=== PATIENT | male | born 1950 | race Two or more races ===

== ENCOUNTER 2018-06-07 13:46 | Inpatient (IN) | payer MEDICARE ==
[~2018-06-07] VITALS: Ht 167.6 cm; Wt 67.1 kg
[2018-06-07 14:10] VITALS: BP_SYST 123; BP_SYST 135; BP_DIAS 65; BP_DIAS 78
[2018-06-07 14:43] VITALS: BP 123/78
--- NOTE | 2018-06-07 14:52 | Diagnostic Imaging Report ---
PROCEDURE: A single AP view of the chest. COMPARISON: None. INDICATIONS: PREOPERATIVE CHEST XRAY FOR PROSTATE SURGERY FINDINGS: Lines/tubes: Left sided tunneled hemodialysis catheter with tip near the cavoatrial junction. Overlying clothing or dressing artifact. Lungs: Moderate lung volumes. There is no evidence of pneumonia or pulmonary edema. A 7 mm nodular opacity projects over the right lower lung zone. Pleura: There is no pleural effusion or pneumothorax. Heart and mediastinum: The cardiomediastinal silhouette. Bones: No acute bony abnormality. IMPRESSION: No evidence of pneumonia or pulmonary edema. A 7 mm nodular opacity projects over the right lower lung zone. There is artifact from overlying clothing or dressing in this location as well. Repeat chest radiograph is recommended with this removed to determine if the opacity is overlying the patient. If the opacity persists, a chest CT may be considered. Dictated by: KAYDEN AHUMADA M.D. on 06/07/2018 at 14:57 Electronically approved by: KAYDEN AHUMADA M.D. on 06/07/2018 at 14:57
[2018-06-07] MEDS ORDERED: DEXTROSE 5%/0.9% SOD CHL 1,000 ML IV SCH (15:00)
[2018-06-07 15:01] LABS: BASOPHILS # (AUTO) 0.1 (0.0-0.1); BASOPHILS % 0.9 % (0.0-1.0); EOSINOPHILS # (AUTO) 0.4 (0.0-0.4); EOSINOPHILS % 4.2 % (0.0-6.0); HEMATOCRIT 29.8 % (38.2-49.6); HEMOGLOBIN 9.7 g/dL (14.0-18.0); LYMPHOCYTES % 23.1 % (18.0-39.1); MEAN CORPUSCULAR HEMOGLOBIN 27.3 pg (28-32); MEAN CORPUSCULAR HGB CONC 32.6 g/dL (31-35); MEAN CORPUSCULAR VOLUME 83.9 fL (81-99); MONOCYTES # (AUTO) 0.6 (0.2-0.8); MONOCYTES % 6.8 % (4.4-11.3); NEUTROPHILS # (AUTO) 5.6 (2.1-6.9); NEUTROPHILS % 64.7 % (38.7-80.0); PLATELET COUNT 317 x10e3/uL (140-360); RED BLOOD COUNT 3.55 x10e6/uL (4.3-5.7); RED CELL DISTRIBUTION WIDTH 14.1 % (11.7-14.4)
[2018-06-07 15:34] LABS: INR 1.09; PROTHROMBIN TIME 13.3 seconds (11.9-14.5)
[2018-06-07 15:35] LABS: PARTIAL THROMBOPLASTIN TIME 33.7 seconds (23.8-35.5)
[2018-06-07 15:46] LABS: ALBUMIN 3.6 g/dL (3.5-5.0); ALBUMIN/GLOBULIN RATIO 0.8 (0.8-2.0); ANION GAP 20.9 mmol/L (8-16); CALCIUM 9.6 mg/dL (8.4-10.2); CHOL/HDL RATIO 4.2 (3.9-4.7); CREATININE, SERUM 5.18 mg/dL (0.72-1.25); POTASSIUM 3.9 mmol/L (3.5-5.1)
[2018-06-07 16:06] LABS: THYROID STIMULATING HORMONE 1.229 uIU/mL (0.350-4.940)
[2018-06-07] MEDS ORDERED: SODIUM CHLORIDE 0.9% 1000ML 1,000 ML ONE (17:39)
[2018-06-07] MEDS ORDERED: CEFAZOLIN SOD 1 GM VIAL IV SCH (18:00)
--- NOTE | 2018-06-07 18:49 | Consultation ---
DATE OF CONSULTATION: June 07, 2018 HISTORY OF PRESENT ILLNESS: Mr. Jones Guillaume is known to me. He is a 67-year-old gentleman with underlying history of metastatic prostate cancer brought in by Dr. Manuel Augustine for transurethral resection of prostate. He is dialysis dependent. He is currently awake and alert. Denies fever, chills, chest pain, shortness of breath, nausea or vomiting. ALLERGIES: NO APPARENT DRUG ALLERGIES. CURRENT MEDICATIONS: Patient is on Flomax 0.4 mg at bedtime, nifedipine 60 mg daily. Cefazolin 1 gram IV q.24 and IV fluid at 30 mL an hour. SOCIAL HISTORY: Patient is . Does not smoke or drink. FAMILY HISTORY: Significant for hypertension. PHYSICAL EXAMINATION: GENERAL: Awake, alert and oriented times 3, lying supine in bed. VITAL SIGNS: With a blood pressure of 123/78, pulse rate 89, afebrile, respiratory rate 18. HEAD AND NECK: Corneae clear. Mucosa dry. Neck veins flat. LUNGS: Relatively clear. No rales. CARDIOVASCULAR: S1 and S2 audible. ABDOMEN: Otherwise soft. LOWER EXTREMITY EXAMINATION: No edema. LABORATORY DATA: Show a white count 8.6. Hemoglobin 9.7. Potassium 3.9. Bicarbonate 19. Creatinine 5.18. IMPRESSION 1. Metabolic acidosis. 2. End-stage renal disease, dialysis dependent. 3. Metastatic prostate cancer. Calcium level is normal at 9.6. For TURP tomorrow. Please see Dr. Augustine's note. Job#: [id number]
[2018-06-07] MEDS ORDERED: SODIUM CHLORIDE 0.9% 1000ML 2,000 ML IV PRN (19:45)
[2018-06-07] MEDS ORDERED: SODIUM CHLORIDE 0.9% 250ML 500 ML IV PRN (19:45)
[2018-06-07] MEDS ORDERED: HEPARIN SOD (PORCINE) 1000 UNIT/ML SDV IV PRN (19:45)
--- NOTE | 2018-06-07 19:48 | Consultation ---
DATE OF CONSULTATION: June 07, 2018 UROLOGY CONSULTATION, INITIAL VISIT ATTENDING: Dr. Urbano Salazar. HISTORY OF PRESENT ILLNESS: This is a 67-year-old patient who is known to me from previous hospitalization at [facility]. At that hospital, he presented with a PSA of over 130 and was found to have every prostate chip biopsy high grade, some of them 9 Siddharth score. Patient also had acute urinary retention and could not void. Attempt to remove the Sethi failed. He has also [id number] renal failure, and presently he is on dialysis. The patient came to be admitted for dialysis in preparation for possible transurethral resection of the prostate tomorrow. Procedure was discussed with the patient. Potential benefits and complications discussed, explained and accepted. PAST MEDICAL HISTORY: Significant for the cancer of the prostate that was mentioned earlier. ALLERGIES TO MEDICATIONS: NOT KNOWN. FAMILY HISTORY: Noncontributory. MEDICATIONS: See MAR. REVIEW OF SYSTEMS: Twelve systems reviewed. Except what is related to inability to void and minimal back pain, everything else was negative. PHYSICAL EXAMINATION VITALS: Blood pressure 130/84, pulse 88, respirations 18, temperature 97.3, GENERAL: Patient is alert and oriented times 3. Does not seem to be in acute distress. HEAD: Symmetric. EYES: Normal movement. NECK: No JVD. No masses. CHEST: Clear. HEART: Regular. ABDOMEN: Soft. EXTERNAL GENITALIA: Unremarkable LOWER EXTREMITIES: No edema. Moves all. LABORATORY DATA: Creatinine 5.18, BUN 65, hemoglobin 9.7, white count 8.64, sodium 140, potassium 3.9, chloride 104, bicarb 19. No urinalysis in the chart at the present time. IMPRESSION 1. Acute urinary retention. 2. Adenocarcinoma of the prostate. 3. Hydronephrosis. 4. Renal failure, acute on chronic. 5. Nocturia. PLAN: Patient is planned to have dialysis today. If medically cleared and ready, he will have the prostate surgery tomorrow. The patient again was advised that this surgery is not treatment of the prostate cancer, just to relieve the obstruction. He understands it. Job#: [id number]
[2018-06-07 20:09] VITALS: BP 112/80
[2018-06-07 21:00] VITALS: BP 112/80
[2018-06-07] MEDS ORDERED: CEFAZOLIN SOD 1 GM/D5W 50ML 50 ML IV SCH (21:00)
[2018-06-07] MEDS: TAMSULOSIN HCL 0.4 MG CAP PO SCH (21:00)
[2018-06-07] MEDS: CEFAZOLIN SOD 1 GM VIAL IV SCH (22:00)
[2018-06-08] VITALS (7 sets, daily range): BP systolic 102–150; BP diastolic 55–92
[2018-06-08 06:24] LABS: ALBUMIN 3.1 g/dL (3.5-5.0); ALBUMIN/GLOBULIN RATIO 0.8 (0.8-2.0); ANION GAP 13.4 mmol/L (8-16); CALCIUM 9.3 mg/dL (8.4-10.2); CREATININE, SERUM 3.11 mg/dL (0.72-1.25); POTASSIUM 4.4 mmol/L (3.5-5.1)
[2018-06-08] MEDS: NIFEDIPINE CR 30 MG TAB PO SCH (08:55)
[2018-06-08 10:12] LABS: BASOPHILS # (AUTO) 0.1 (0.0-0.1); BASOPHILS % 1.2 % (0.0-1.0); EOSINOPHILS # (AUTO) 0.3 (0.0-0.4); EOSINOPHILS % 4.4 % (0.0-6.0); HEMATOCRIT 27.6 % (38.2-49.6); HEMOGLOBIN 8.8 g/dL (14.0-18.0); LYMPHOCYTES # (AUTO) 1.6 (1.0-3.2); LYMPHOCYTES % 27.1 % (18.0-39.1); MEAN CORPUSCULAR HEMOGLOBIN 27.4 pg (28-32); MEAN CORPUSCULAR HGB CONC 31.9 g/dL (31-35); MONOCYTES # (AUTO) 0.6 (0.2-0.8); MONOCYTES % 9.7 % (4.4-11.3); NEUTROPHILS # (AUTO) 3.4 (2.1-6.9); NEUTROPHILS % 57.1 % (38.7-80.0); PLATELET COUNT 268 x10e3/uL (140-360); RED BLOOD COUNT 3.21 x10e6/uL (4.3-5.7); RED CELL DISTRIBUTION WIDTH 13.9 % (11.7-14.4)
--- NOTE | 2018-06-08 10:30 | History and Physical ---
He is a 67-year-old male patient of mine who presented with renal failure, profound weakness and weight loss. CHIEF COMPLAINT: The patient is being admitted for prostate cancer. HISTORY OF PRESENT ILLNESS: Mr. Jones Guillaume had metastatic prostate cancer and weight loss. Had renal failure requiring hemodialysis. Now, the patient is currently on hemodialysis treatment. The patient is having metastatic prostate cancer with metastasis into the bones. The patient has severe obstruction with hydronephrosis. The patient is getting prostate surgery. The patient was getting preop dialysis and monitoring. MEDICAL HISTORY: Hypertension, hyperlipidemia, arthritis. PAST SURGICAL HISTORY: Hemodialysis catheter placement. FAMILY HISTORY: Hypertension. SOCIAL HISTORY: Denies smoking. Denies using alcohol. ALLERGIES: NO KNOWN DRUG ALLERGIES. The patient had a recent prostatic biopsy, which has metastasis to the bones. The patient has severe anemia and renal failure. REVIEW OF SYSTEMS: As per history of present illness. PHYSICAL EXAMINATION GENERAL: He is a middle-aged male patient lying in bed not in any acute distress. VITALS: Temperature 98, pulse 80, respiratory rate 20, blood pressure 110/70. HEENT: Normocephalic and atraumatic. No jugular venous distention. No lymphadenopathy. LUNGS: Bilateral equal air entry. No rales. No rhonchi. HEART: S1 and S2. Regular. No murmurs. No gallops. ABDOMEN: Soft. Bowel sounds are present. NEUROLOGICAL: No focal neurological deficit. : The patient has a Sethi catheter. DX --AC RENAL FAILURE MET PROSTATE CANCER OA KNEE PLAN: The patient will be admitted to the hospital. The patient will be taken to the OR. Job#: [id number] WILL HENAO
[2018-06-08] MEDS ORDERED: IOPAMIDOL 300MG/ML 50ML INFUS..BTL IV ONE (13:32)
[2018-06-08] MEDS ORDERED: FENTANYL CITRATE/PF 100MCG/2 ML INJ ONE ×2 (14:33→14:36)
[2018-06-08] MEDS ORDERED: MIDAZOLAM HCL 2 MG/2 ML VIAL ONE (14:33)
[2018-06-08] MEDS ORDERED: ONDANSETRON HCL INJ 2 MG/ML VIAL ONE (16:36)
[2018-06-08] MEDS ORDERED: SEVOFLURANE INHAL SOLN 250 ML PEN BTL ONE (16:36)
[2018-06-08] MEDS ORDERED: LIDOCAINE HCL 2% LOCAL INJ 5 ML SDV VIAL INJ ONE (16:36)
[2018-06-08] MEDS ORDERED: PROPOFOL IV EMULSION 10 MG/ML 20 ML VIAL ONE (16:36)
[2018-06-08] MEDS ORDERED: EPHEDRINE SULFATE INJ 50 MG/10 ML SYR ONE (16:36)
[2018-06-08] MEDS ORDERED: DEXAMETHASONE SOD PHOS INJ 4 MG/ML VIAL ONE (16:36)
[2018-06-08] MEDS: ACETAMINOPHEN/CODEINE 300MG - 30MG TAB PO PRN (17:10)
--- NOTE | 2018-06-08 17:53 | Operative Report ---
DATE OF PROCEDURE: ATTENDING PHYSICIAN: Dr. Urbano Salazar. PREOPERATIVE DIAGNOSES: 1. Urinary retention. 2. Adenocarcinoma of the prostate. 3. Hydronephrosis. 4. Renal failure. OPERATIONS PERFORMED: 1. Cystoscopy. 2. Transurethral resection of the prostate with a Plasma. AGRICULTURE ENGINEER: None. ANESTHESIA: General. CLINICAL INDICATION NOTE: This is a 67-year-old patient found to be with advanced cancer of the prostate. Had urinary retention. Presently patient is on dialysis and is on LHRH agonist and . Patient was brought for resection of the prostate. This is not a treatment for the cancer, just to eliminate the obstruction. Patient so advised as well as his , and they understand it. DESCRIPTION OF PROCEDURE AND FINDINGS: After proper level of anesthesia was achieved, the patient was placed in lithotomy position, prepped and draped in sterile fashion. Urethra inspected, is unremarkable. The outlet is obstructed by large prostate. Bladder is extensively trabeculated. Impossible to identify ureteral orifices. The bladder has superficial diverticula as well. The resectoscope was then inserted, and systematic resection of the prostate was done. The veru could barely be identified, is very small. Mid lobe was resected first and then both lateral lobes. Following the resection, a coagulation of any bleeding points was done. A 24-Slovak 30-mL Sethi catheter was inserted, connected to continuous irrigation with normal saline. Patient tolerated the procedure well and was transferred in satisfactory condition. Blood loss minimal. Specimen was sent to pathology. Job#: [id number] SAGRARIO
[2018-06-08] MEDS: TAMSULOSIN HCL 0.4 MG CAP PO SCH (21:50)
[2018-06-08] MEDS: CEFAZOLIN SOD 1 GM VIAL IV SCH (21:50)
[2018-06-09] VITALS (9 sets, daily range): BP systolic 102–149; BP diastolic 72–81
[2018-06-09] MEDS: ACETAMINOPHEN/CODEINE 300MG - 30MG TAB PO PRN (02:49)
[2018-06-09 04:37] LABS: BASOPHILS % 0.1 % (0.0-1.0); EOSINOPHILS % 0.2 % (0.0-6.0); HEMATOCRIT 27.1 % (38.2-49.6); HEMOGLOBIN 8.5 g/dL (14.0-18.0); LYMPHOCYTES # (AUTO) 1.2 (1.0-3.2); LYMPHOCYTES % 12.4 % (18.0-39.1); MEAN CORPUSCULAR HEMOGLOBIN 27.1 pg (28-32); MEAN CORPUSCULAR HGB CONC 31.4 g/dL (31-35); MEAN CORPUSCULAR VOLUME 86.3 fL (81-99); MONOCYTES # (AUTO) 0.7 (0.2-0.8); MONOCYTES % 6.6 % (4.4-11.3); NEUTROPHILS # (AUTO) 8.1 (2.1-6.9); NEUTROPHILS % 80.3 % (38.7-80.0); RED BLOOD COUNT 3.14 x10e6/uL (4.3-5.7); RED CELL DISTRIBUTION WIDTH 14.1 % (11.7-14.4)
[2018-06-09 04:39] LABS: PLATELET COUNT 250 x10e3/uL (140-360)
[2018-06-09] MEDS: NIFEDIPINE CR 30 MG TAB PO SCH (09:00)
--- NOTE | 2018-06-09 17:32 | Progress Note ---
DATE: NEPHROLOGY DIALYSIS PROGRESS NOTE SUBJECTIVE: Mr. Guillaume has poor appetite. He denied any shortness of breath. He is losing weight. He has mild pain in the pelvis. PHYSICAL FINDINGS: GENERAL: Alert, oriented, in no acute distress. VITAL SIGNS: Blood pressure 121/75, heart rate 71 per minute. LUNGS: Bilaterally clear to auscultation. HEART: Normal heart sounds. No additional sounds. ABDOMEN: Soft, nontender. No organomegaly. EXTREMITIES: No cyanosis, clubbing or edema. LABORATORY FINDINGS: Noted and reviewed. ASSESSMENT AND PLAN: End-stage renal disease. The patient is receiving hemodialysis per orders, ultrafiltration as tolerated. Job#: [id number] EV
[2018-06-09] MEDS: CEFAZOLIN SOD 1 GM VIAL IV SCH (20:50)
[2018-06-09] MEDS: TAMSULOSIN HCL 0.4 MG CAP PO SCH (20:50)
[2018-06-10] VITALS (8 sets, daily range): BP systolic 114–127; BP diastolic 58–80
[2018-06-10] MEDS: NIFEDIPINE CR 30 MG TAB PO SCH (08:43)
[2018-06-10] MEDS: TAMSULOSIN HCL 0.4 MG CAP PO SCH (21:23)
[2018-06-10] MEDS: CEFAZOLIN SOD 1 GM VIAL IV SCH (21:23)
[2018-06-11] VITALS (7 sets, daily range): BP systolic 109–134; BP diastolic 67–83
[2018-06-11] MEDS: PHENAZOPYRIDINE HCL 100 MG TAB PO SCH ×3 (09:16→18:11)
[2018-06-11] MEDS: NIFEDIPINE CR 30 MG TAB PO SCH (09:16)
[2018-06-11] MEDS: ACETAMINOPHEN/CODEINE 300MG - 30MG TAB PO PRN (19:16)
[2018-06-11] MEDS: CEFAZOLIN SOD 1 GM VIAL IV SCH (21:41)
[2018-06-11] MEDS: TAMSULOSIN HCL 0.4 MG CAP PO SCH (21:41)
[2018-06-12] VITALS: BP 127/80
[2018-06-12 04:00] VITALS: BP 124/80
[2018-06-12 07:15] VITALS: BP 99/76
[2018-06-12 08:28] VITALS: BP 99/76
[2018-06-12] MEDS: NIFEDIPINE CR 30 MG TAB PO SCH (09:00)
[2018-06-12] MEDS: PHENAZOPYRIDINE HCL 100 MG TAB PO SCH ×2 (09:40→13:00)
[2018-06-12 12:04] VITALS: BP 109/73
[2018-06-12 16:00] VITALS: BP 110/67
[2018-06-12] MEDS ORDERED: BACTRIM DS TAB1 EACH PO (18:13)
[2018-06-12] MEDS ORDERED: TYLENOL WITH C1 EACH PO (18:13)
--- NOTE | 2018-06-12 18:54 | Discharge Summary ---
This 67-year-old patient of mine presented to the hospital for renal failure and profound weakness. The patient was undergoing surgery. The patient was admitted with a diagnosis of renal failure with hydronephrosis secondary to obstructive uropathy from the metastatic prostate cancer and osteoarthritis and hypertension. HOSPITAL COURSE SUMMARY: The patient was admitted with the above diagnosis. The patient had emergent hemodialysis treatment before the surgery. Then after that the patient was taken to the operating room and treated by Dr. Augustine. The patient had prostatectomy done. Cystoscopy also was done. TURP was done. Postop the patient was having hematuria so he was given continuous bladder irrigation. The patient's residual urine was obtained. The patient was given postop analgesia. Now, upon stabilization the patient will be discharged home on oral antibiotic, Bactrim single strength and Tylenol No. 3 for pain. Would recommend the patient for arthritic pain. The patient was advised to follow up within the next week as an outpatient. The patient is supposed to avoid any NSAIDs immediate postop. The patient will continue to get hemodialysis treatment as an outpatient with nephrology group. The patient will be followed up as an outpatient. ION STERN MD Job#: [id number]
== END 2018-06-12 19:00 | disposition home or self-care (01) | DRG 665 ==
LOC: OR 13:46 → MED/SURG3 13:50
PROVIDERS: ADMIT Internal Medicine; ATTEND Internal Medicine
PROC: 5A1D70Z Performance of Urinary Filtration, Intermittent, Less than 6 Hours Per Day (ICD-10-PCS; principal; 2018-06-07)
PROC: 0VB08ZZ Excision of Prostate, Via Natural or Artificial Opening Endoscopic (ICD-10-PCS; 2018-06-08 13:00)
PROC: 5A1D70Z Performance of Urinary Filtration, Intermittent, Less than 6 Hours Per Day (ICD-10-PCS; 2018-06-09)
PROC: 5A1D70Z Performance of Urinary Filtration, Intermittent, Less than 6 Hours Per Day (ICD-10-PCS; 2018-06-12)
DX: I12.0 Hypertensive chronic kidney disease with stage 5 chronic kidney disease or end stage renal disease (principal); N18.6 End stage renal disease; N17.9 Acute kidney failure, unspecified; E87.2 Acidosis; C79.51 Secondary malignant neoplasm of bone; N13.30 Unspecified hydronephrosis; C61 Malignant neoplasm of prostate; Z99.2 Dependence on renal dialysis; R33.9 Retention of urine, unspecified; R35.1 Nocturia; E78.5 Hyperlipidemia, unspecified; D64.9 Anemia, unspecified; M17.10 Unilateral primary osteoarthritis, unspecified knee
CPT/HCPCS: 36415; 71045; 80053; 80061; 84443; 85025; 85610; 85730; 86704; 86706; 86850; 86900; 86920; 87340; 88305; 93005; J0690; J1100; J1644; J2001; J2250; J2405; J7030; J7042

== ENCOUNTER 2024-09-23 06:18 | Emergency (ER) | payer MEDICARE ==
[~2024-09-23] VITALS: Ht 165.1 cm; Wt 61.7 kg
[~2024-09-23 06:18] MED LIST: BACTRIM DS TAB1 EACH PO; NIFEDIAC CC60 MG PO; TYLENOL WITH C1 EACH PO
[2024-09-23 06:24] VITALS: TEMP 98.1
[2024-09-23] MEDS ORDERED: SODIUM CHLORIDE FLUSH 10 ML SYR IV PRN (06:45)
[2024-09-23] MEDS: HYDRALAZINE HCL 20 MG/ML VIAL IV STA (06:48)
[2024-09-23 06:51] LABS: BASOPHILS # (AUTO) 0.1 (0.0-0.1); BASOPHILS % 0.5 % (0.0-1.0); EOSINOPHILS # (AUTO) 0.1 (0.0-0.4); EOSINOPHILS % 1.3 % (0.0-6.0); HEMATOCRIT 31.7 % (38.2-49.6); HEMOGLOBIN 9.9 g/dL (14.0-18.0); LYMPHOCYTES # (AUTO) 1.1 (1.0-3.2); LYMPHOCYTES % 10.9 % (18.0-39.1); MEAN CORPUSCULAR HEMOGLOBIN 28.5 pg (28-32); MEAN CORPUSCULAR HGB CONC 31.2 g/dL (31-35); MEAN CORPUSCULAR VOLUME 91.4 fL (81-99); MONOCYTES # (AUTO) 0.7 (0.2-0.8); MONOCYTES % 6.8 % (4.4-11.3); NEUTROPHILS # (AUTO) 7.9 (2.1-6.9); NEUTROPHILS % 80.2 % (38.7-80.0); PLATELET COUNT 128 x10e3/uL (140-360); RED BLOOD COUNT 3.47 x10e6/uL (4.3-5.7); RED CELL DISTRIBUTION WIDTH 14.7 % (11.7-14.4); WHITE BLOOD COUNT 9.82 x10e3/uL (4.8-10.8)
[2024-09-23 07:30] LABS: ALBUMIN 3.8 g/dL (3.5-5.0); ALBUMIN/GLOBULIN RATIO 1.3 (0.8-2.0); ANION GAP 18.7 mmol/L (8-16); BILIRUBIN,TOTAL 0.6 mg/dL (0.2-1.2); CALCIUM 9.2 mg/dL (8.4-10.2); CREATININE, SERUM 7.27 mg/dL (0.72-1.25); POTASSIUM 4.7 mmol/L (3.5-5.1); TOTAL PROTEIN 6.8 g/dL (6.5-8.1)
[2024-09-23 07:36] LABS: TROPONIN I 0.024 ng/mL (0-0.300)
[2024-09-23 07:37] VITALS: PULSE 63; RESP 18
[2024-09-23 09:04] VITALS: BP 148/79; PULSE 68; RESP 18; TEMP 97.3; O2SAT 100
== END 2024-09-23 09:05 | disposition home or self-care (01) ==
LOC: ER 06:21
DX: I16.0 Hypertensive urgency (principal); I12.0 Hypertensive chronic kidney disease with stage 5 chronic kidney disease or end stage renal disease; N18.6 End stage renal disease; Z99.2 Dependence on renal dialysis; E78.5 Hyperlipidemia, unspecified; I25.10 Atherosclerotic heart disease of native coronary artery without angina pectoris; R94.31 Abnormal electrocardiogram [ECG] [EKG]; I25.2 Old myocardial infarction; Z85.46 Personal history of malignant neoplasm of prostate
CPT/HCPCS: 36415; 71046; 80053; 83880; 84484; 85025; 93005; 94760; 99284; J0360